=== PATIENT | female | born 1960 | race Two or more races ===

== ENCOUNTER 2022-09-29 08:00 | Inpatient (IN) | payer MEDICAID, OTHER ==
[~2022-09-29] VITALS: Ht 162.6 cm; Wt 64.3 kg
[2022-09-29] VITALS (11 sets, daily range): BP systolic 90–118; BP diastolic 46–61
[2022-09-29] MEDS ORDERED: LACTATED RINGER'S 2,000 ML IV ONE (08:45)
[2022-09-29] MEDS ORDERED: VANCOMYCIN 1GM/250ML 250 ML IV ONE (08:45)
[2022-09-29] MEDS ORDERED: CEFEPIME 1GM/ 50ML 50 ML IV ONE (08:45)
[2022-09-29] MEDS ORDERED: ACETAMINOPHEN 325 MG TAB PO ONE ×2 (08:45→17:30)
[2022-09-29] MEDS ORDERED: IOHEXOL 300 MG/ML 100ML BOTTLE IJ ONE ×2 (08:58→17:22)
[2022-09-29 09:27] LABS: Basophils # (auto) 0 10 ^3/uL (0-0.2); Basophils % (auto) 0.1 % (0.0-2.0); Eosinophils # (auto) 0 10 ^3/uL (0-0.8); Eosinophils % (auto) 0.1 % (0.0-7.0); Hematocrit 29.1 % (36.0-46.0); Hemoglobin 9.6 g/dL (12.2-16.2); Lymphocytes # (auto) 0.9 10 ^3/uL (0.4-5.4); Mean Corpuscular Hemoglobin 24.8 pg (28.0-32.0); Mean Corpuscular Hgb Conc. 32.9 g/dL (32.0-36.0); Mean Corpuscular Volume 75.4 fL (80.0-100.0); Monocytes # (auto) 1.1 10 ^3/uL (0-1.3); Monocytes % (auto) 8.4 % (0.0-12.0); Neutrophils # (auto) 11.5 10 ^3/uL (1.6-8.6); Neutrophils % (auto) 84.4 % (37.0-80.0); Nucleated Red Blood Cells % 0.1 %; Red Blood Cells 3.86 10^6/uL (4.0-5.20); Red Cell Distribution Width 14.1 % (11.8-14.3); White Blood Cell 13.6 10^3/uL (4.4-10.8)
[2022-09-29 09:38] LABS: INR 1.18 (0.9-1.15); Partial Thromboplastin Time 28.2 sec (24.6-33.4)
[2022-09-29 10:54] LABS: Albumin 1.9 g/dL (3.4-5.0); Calcium 8.3 mg/dL (8.5-10.1); Magnesium 1.9 mg/dL (1.6-2.6); Potassium 3.4 mmol/L (3.5-5.1)
[2022-09-29 10:57] LABS: Bilirubin, Total 0.6 mg/dL (0.2-1.0); Total Protein 7.1 g/dL (6.4-8.2)
[2022-09-29] MEDS ORDERED: PANTOPRAZOLE 40 MG/10 ML VIAL INJ IV ONE (11:30)
[2022-09-29] MEDS ORDERED: PANTOPRAZOLE 40mg/50ML NS AE 50 ML IV ONE (11:30)
[2022-09-29 13:59] LABS: Hemoglobin 8.8 g/dL (12.2-16.2)
[2022-09-29 14:03] LABS: Hematocrit 26.7 % (36.0-46.0)
[2022-09-29] MEDS ORDERED: SODIUM CHLORIDE 0.9% 1,000 ML IV ONE (15:15)
[2022-09-29] MEDS ORDERED: NOREPINEPHRINE 8 MG/250ML KIT 250 ML IV SCH (15:15)
[2022-09-29] MEDS ORDERED: MORPHINE SULFATE INJ 2 MG/ml SYRG IV ONE (15:15)
[2022-09-29] MEDS ORDERED: metroNIDAZOLE 500MG/100ML 100 ML IV ONE ×2 (16:00→18:00)
[2022-09-29 17:20] LABS: Urine Bacteria NONE SEEN /hpf (None Seen); Urine Blood 3+ /uL (Negative); Urine Specific Gravity 1.034 (1.001-1.035); Urine WBC 1039 /hpf (0 - 5); Urine WBC Clumps PRESENT /hpf (None Seen)
[2022-09-29] MEDS ORDERED: PIPERACILLIN-TAZOB 3.375GM 100 ML IV SCH (18:00)
[2022-09-29] MEDS ORDERED: NITROGLYCERIN 0.4 MG SL TAB SL PRN (18:00)
[2022-09-29] MEDS ORDERED: VANCOMYCIN PER PHARMACY 0 MG IV SCH (18:00)
[2022-09-29] MEDS: ALBUMIN 25% 50 ML IV SCH (18:22)
[2022-09-29] MEDS: SODIUM CHLORIDE 0.9% 1,000 ML IV SCH (18:22)
[2022-09-29] MEDS: PIPERACILLIN-TAZOB 3.375GM 100 ML IV SCH (18:30)
[2022-09-29 18:43] LABS: Hemoglobin 8.3 g/dL (12.2-16.2)
[2022-09-29 18:47] LABS: Hematocrit 25.5 % (36.0-46.0)
[2022-09-29 18:58] LABS: INR 1.18 (0.9-1.15); Partial Thromboplastin Time 29.6 sec (24.6-33.4)
[2022-09-29 19:06] LABS: % Iron Saturation 7.3 % (15-50)
[2022-09-29 19:08] LABS: Cholesterol 53 mg/dL (< 200); HDL Cholesterol 15 mg/dL (40-59); LDL Cholesterol 36 mg/dL (< 100); Triglycerides 77 mg/dL (< 150)
[2022-09-29 19:18] LABS: Folate (Folic Acid) 11.53 ng/mL (5.38-24)
[2022-09-29] MEDS: VANCOMYCIN 1GM/250ML 250 ML IV SCH (20:25)
[2022-09-29] MEDS: PANTOPRAZOLE 40 MG/10 ML VIAL INJ IV SCH (21:58)
[2022-09-29] MEDS: MORPHINE SULFATE INJ 2 MG/ml SYRG IV PRN (21:58)
[2022-09-30] VITALS (95 sets, daily range): BP systolic 83–121; BP diastolic 35–64
[2022-09-30 00:56] LABS: Hematocrit 26.6 % (36.0-46.0); Hemoglobin 8.7 g/dL (12.2-16.2)
[2022-09-30] MEDS: metroNIDAZOLE 500MG/100ML 100 ML IV SCH ×3 (01:39→17:24)
[2022-09-30] MEDS: ALBUMIN 25% 50 ML IV SCH ×2 (01:40→10:46)
[2022-09-30] MEDS: PIPERACILLIN-TAZOB 3.375GM 100 ML IV SCH ×2 (02:39→10:30)
[2022-09-30 04:43] LABS: Basophils # (auto) 0 10 ^3/uL (0-0.2); Hematocrit 27.6 % (36.0-46.0); Hemoglobin 8.9 g/dL (12.2-16.2); White Blood Cell 16.4 10^3/uL (4.4-10.8)
[2022-09-30 04:47] LABS: Basophils % (auto) 0.2 % (0.0-2.0); Eosinophils # (auto) 0 10 ^3/uL (0-0.8); Eosinophils % (auto) 0.1 % (0.0-7.0); Lymphocytes # (auto) 1.1 10 ^3/uL (0.4-5.4); Lymphocytes % (auto) 6.6 % (10.0-50.0); Mean Corpuscular Hgb Conc. 32.4 g/dL (32.0-36.0); Mean Corpuscular Volume 77.2 fL (80.0-100.0); Monocytes # (auto) 1.1 10 ^3/uL (0-1.3); Monocytes % (auto) 6.9 % (0.0-12.0); Neutrophils # (auto) 14.2 10 ^3/uL (1.6-8.6); Neutrophils % (auto) 86.2 % (37.0-80.0); Red Blood Cells 3.57 10^6/uL (4.0-5.20); Red Cell Distribution Width 13.9 % (11.8-14.3)
[2022-09-30 04:48] LABS: Albumin 1.9 g/dL (3.4-5.0); BUN/Creatinine Ratio 13.3 (10.0-20.0)
[2022-09-30 04:50] LABS: Bilirubin, Total 0.6 mg/dL (0.2-1.0); Total Protein 6.6 g/dL (6.4-8.2)
[2022-09-30] MEDS: SODIUM CHLORIDE 0.9% 1,000 ML IV SCH ×3 (05:13→17:24)
[2022-09-30] MEDS: MORPHINE SULFATE INJ 2 MG/ml SYRG IV PRN ×2 (06:34→15:10)
[2022-09-30] MEDS: VANCOMYCIN 1GM/250ML 250 ML IV SCH ×2 (09:16→23:12)
[2022-09-30] MEDS: PANTOPRAZOLE 40 MG/10 ML VIAL INJ IV SCH ×2 (10:45→22:07)
[2022-09-30 12:08] LABS: Hemoglobin 8.5 g/dL (12.2-16.2)
[2022-09-30 12:11] LABS: Hematocrit 26.1 % (36.0-46.0)
[2022-09-30] MEDS ORDERED: POTASSIUM CHLORIDE 60 MEQ, LIDOCAINE 1% (LOCAL ANESTH.) 6 ML in SODIUM CHL 0.9% 500 ML IV ONE (12:45)
[2022-09-30] MEDS: NOREPINEPHRINE 8 MG/250ML KIT 250 ML IV SCH (14:00)
[2022-09-30 18:31] LABS: Hemoglobin 9.2 g/dL (12.2-16.2)
[2022-09-30 18:33] LABS: Hematocrit 28.7 % (36.0-46.0)
[2022-09-30] MEDS ORDERED: LACTATED RINGER'S 1,000 ML IV ONE (20:00)
[2022-10-01] VITALS (96 sets, daily range): BP systolic 84–163; BP diastolic 37–74
[2022-10-01] MEDS: MORPHINE SULFATE INJ 2 MG/ml SYRG IV PRN ×3 (01:03→21:06)
[2022-10-01] MEDS: SODIUM CHLORIDE 0.9% 1,000 ML IV SCH ×3 (02:07→18:16)
[2022-10-01] MEDS: metroNIDAZOLE 500MG/100ML 100 ML IV SCH ×3 (02:08→18:16)
[2022-10-01] MEDS: NOREPINEPHRINE 8 MG/250ML KIT 250 ML IV SCH (03:52)
[2022-10-01 04:09] LABS: Basophils # (auto) 0 10 ^3/uL (0-0.2); Eosinophils # (auto) 0 10 ^3/uL (0-0.8); Hemoglobin 8.2 g/dL (12.2-16.2); Monocytes # (auto) 0.5 10 ^3/uL (0-1.3); Neutrophils # (auto) 9.2 10 ^3/uL (1.6-8.6); Red Blood Cells 3.23 10^6/uL (4.0-5.20)
[2022-10-01 04:12] LABS: Basophils % (auto) 0.2 % (0.0-2.0); Eosinophils % (auto) 0.1 % (0.0-7.0); Hematocrit 24.8 % (36.0-46.0); Lymphocytes % (auto) 9.2 % (10.0-50.0); Mean Corpuscular Hemoglobin 25.2 pg (28.0-32.0); Mean Corpuscular Hgb Conc. 32.8 g/dL (32.0-36.0); Mean Corpuscular Volume 76.8 fL (80.0-100.0); Neutrophils % (auto) 85.5 % (37.0-80.0); Red Cell Distribution Width 13.7 % (11.8-14.3); White Blood Cell 10.7 10^3/uL (4.4-10.8)
[2022-10-01 05:04] LABS: BUN/Creatinine Ratio 19.2 (10.0-20.0); Calcium 8.2 mg/dL (8.5-10.1); Potassium 3.1 mmol/L (3.5-5.1)
[2022-10-01] MEDS ORDERED: POTASSIUM CHLORIDE 60 MEQ, LIDOCAINE 1% (LOCAL ANESTH.) 6 ML in SODIUM CHL 0.9% 500 ML IV ONE (09:45)
[2022-10-01] MEDS: PANTOPRAZOLE 40 MG/10 ML VIAL INJ IV SCH ×2 (10:22→22:24)
[2022-10-01] MEDS: VANCOMYCIN 1GM/250ML 250 ML IV SCH ×2 (12:47→21:05)
[2022-10-01 14:16] LABS: INR 1.29 (0.9-1.15); Partial Thromboplastin Time 37.1 sec (24.6-33.4)
[2022-10-01] MEDS ORDERED: LIDOCAINE 1% (LOCAL ANESTH.) PF 5ml SDV ID ONE (18:00)
[2022-10-01] MEDS: SODIUM CHLOR 0.9% PF (SALINE LOCK) 10ML VIAL/SYR IV SCH (22:24)
[2022-10-01] MEDS: CEFEPIME 1GM/ 50ML 50 ML IV SCH (22:24)
[2022-10-02] VITALS (87 sets, daily range): BP systolic 85–128; BP diastolic 41–56
[2022-10-02] MEDS: NOREPINEPHRINE 8 MG/250ML KIT 250 ML IV SCH (00:26)
[2022-10-02] MEDS: SODIUM CHLORIDE 0.9% 1,000 ML IV SCH ×2 (02:00→05:21)
[2022-10-02] MEDS: metroNIDAZOLE 500MG/100ML 100 ML IV SCH ×2 (03:14→10:50)
[2022-10-02] MEDS: MORPHINE SULFATE INJ 2 MG/ml SYRG IV PRN ×3 (04:17→14:52)
[2022-10-02 04:50] LABS: Basophils # (auto) 0 10 ^3/uL (0-0.2); Eosinophils # (auto) 0 10 ^3/uL (0-0.8); Eosinophils % (auto) 0.3 % (0.0-7.0); Hemoglobin 7.9 g/dL (12.2-16.2); Lymphocytes # (auto) 0.8 10 ^3/uL (0.4-5.4); Mean Corpuscular Hemoglobin 24.9 pg (28.0-32.0); Mean Corpuscular Hgb Conc. 32.4 g/dL (32.0-36.0); Mean Corpuscular Volume 76.8 fL (80.0-100.0); Nucleated Red Blood Cells % 0.1 %; White Blood Cell 9.1 10^3/uL (4.4-10.8)
[2022-10-02 04:59] LABS: Basophils % (auto) 0.4 % (0.0-2.0); Hematocrit 24.3 % (36.0-46.0); Lymphocytes % (auto) 8.4 % (10.0-50.0); Monocytes # (auto) 0.6 10 ^3/uL (0-1.3); Monocytes % (auto) 6.6 % (0.0-12.0); Neutrophils # (auto) 7.7 10 ^3/uL (1.6-8.6); Neutrophils % (auto) 84.3 % (37.0-80.0); Red Blood Cells 3.17 10^6/uL (4.0-5.20); Red Cell Distribution Width 14.3 % (11.8-14.3)
[2022-10-02] MEDS: VANCOMYCIN 1GM/250ML 250 ML IV SCH ×2 (05:20→13:21)
[2022-10-02 05:23] LABS: BUN/Creatinine Ratio 21.1 (10.0-20.0); Calcium 7.2 mg/dL (8.5-10.1)
[2022-10-02 05:31] LABS: Potassium 2.9 mmol/L (3.5-5.1)
[2022-10-02] MEDS: CEFEPIME 1GM/ 50ML 50 ML IV SCH ×3 (06:19→22:30)
[2022-10-02] MEDS: PANTOPRAZOLE 40 MG/10 ML VIAL INJ IV SCH ×2 (09:59→22:30)
[2022-10-02] MEDS: SODIUM CHLOR 0.9% PF (SALINE LOCK) 10ML VIAL/SYR IV SCH ×2 (10:00→22:30)
[2022-10-02] MEDS ORDERED: POTASSIUM CHLORIDE 60 MEQ, LIDOCAINE 1% (LOCAL ANESTH.) 6 ML in SODIUM CHL 0.9% 500 ML IV ONE (11:30)
[2022-10-02 13:36] LABS: Urine Bacteria FEW /hpf (None Seen); Urine Blood 3+ /uL (Negative); Urine Mucus FEW (None Seen); Urine Specific Gravity 1.017 (1.001-1.035); Urine WBC 2426 /hpf (0 - 5); Urine WBC Clumps PRESENT /hpf (None Seen)
[2022-10-03] VITALS (93 sets, daily range): BP systolic 82–121; BP diastolic 30–60
[2022-10-03 04:39] LABS: Basophils # (auto) 0 10 ^3/uL (0-0.2); Eosinophils # (auto) 0 10 ^3/uL (0-0.8); Hemoglobin 8.4 g/dL (12.2-16.2)
[2022-10-03 04:41] LABS: Basophils % (auto) 0.2 % (0.0-2.0); Eosinophils % (auto) 0.6 % (0.0-7.0); Hematocrit 25.6 % (36.0-46.0); Lymphocytes # (auto) 0.9 10 ^3/uL (0.4-5.4); Lymphocytes % (auto) 13.6 % (10.0-50.0); Mean Corpuscular Hemoglobin 25.2 pg (28.0-32.0); Mean Corpuscular Hgb Conc. 32.9 g/dL (32.0-36.0); Mean Corpuscular Volume 76.7 fL (80.0-100.0); Monocytes # (auto) 0.4 10 ^3/uL (0-1.3); Monocytes % (auto) 6.8 % (0.0-12.0); Neutrophils # (auto) 5.2 10 ^3/uL (1.6-8.6); Neutrophils % (auto) 78.8 % (37.0-80.0); Red Blood Cells 3.34 10^6/uL (4.0-5.20); Red Cell Distribution Width 14.4 % (11.8-14.3); White Blood Cell 6.5 10^3/uL (4.4-10.8)
[2022-10-03 05:00] LABS: Calcium 8.1 mg/dL (8.5-10.1); Potassium 3.4 mmol/L (3.5-5.1)
[2022-10-03] MEDS: NOREPINEPHRINE 8 MG/250ML KIT 250 ML IV SCH (05:44)
[2022-10-03] MEDS: MORPHINE SULFATE INJ 2 MG/ml SYRG IV PRN ×4 (05:45→22:43)
[2022-10-03] MEDS: CEFEPIME 1GM/ 50ML 50 ML IV SCH ×3 (06:05→22:42)
[2022-10-03] MEDS: PANTOPRAZOLE 40 MG/10 ML VIAL INJ IV SCH ×2 (10:04→22:42)
[2022-10-03] MEDS: SODIUM CHLOR 0.9% PF (SALINE LOCK) 10ML VIAL/SYR IV SCH ×2 (10:04→22:43)
[2022-10-03] MEDS ORDERED: TPN PER PHARMACY 0 ML IV SCH (13:30)
[2022-10-03] MEDS ORDERED: ALBUMIN 25% 100 ML IV ONE (13:45)
[2022-10-03] MEDS: D5W/SOD CHL 0.45% 1,000 ML IV SCH ×2 (14:30→23:51)
[2022-10-03 15:49] LABS: Magnesium 1.8 mg/dL (1.6-2.6)
[2022-10-03 15:51] LABS: Phosphorus 2.7 mg/dL (2.5-4.90)
[2022-10-03] MEDS ORDERED: POTASSIUM CHL 20MEQ/100ML 100 ML IV ONE (16:15)
[2022-10-03] MEDS: AMINO ACID INFUSION IN D10W 1,000 ML IV NR (20:13)
[2022-10-04] VITALS (94 sets, daily range): BP systolic 81–133; BP diastolic 35–63
[2022-10-04] MEDS ORDERED: DEXTROSE (50%) 50ML SYRG IV SCH
[2022-10-04] MEDS: ACCU-CHEK COMFORT CURVE STRIP VI SCH ×4 (01:05→18:16)
[2022-10-04 04:32] LABS: Basophils # (auto) 0 10 ^3/uL (0-0.2); Basophils % (auto) 0.1 % (0.0-2.0); Eosinophils # (auto) 0 10 ^3/uL (0-0.8); Eosinophils % (auto) 0.7 % (0.0-7.0); Lymphocytes # (auto) 0.8 10 ^3/uL (0.4-5.4); Monocytes # (auto) 0.4 10 ^3/uL (0-1.3); Neutrophils # (auto) 4.9 10 ^3/uL (1.6-8.6); White Blood Cell 6.1 10^3/uL (4.4-10.8)
[2022-10-04 04:35] LABS: Hematocrit 23.2 % (36.0-46.0); Hemoglobin 7.8 g/dL (12.2-16.2); Mean Corpuscular Hemoglobin 25.3 pg (28.0-32.0); Mean Corpuscular Hgb Conc. 33.5 g/dL (32.0-36.0); Mean Corpuscular Volume 75.3 fL (80.0-100.0); Monocytes % (auto) 5.7 % (0.0-12.0); Neutrophils % (auto) 80.5 % (37.0-80.0); Red Blood Cells 3.08 10^6/uL (4.0-5.20); Red Cell Distribution Width 14.3 % (11.8-14.3)
[2022-10-04 04:43] LABS: Albumin 1.7 g/dL (3.4-5.0); Anion Gap 4 (5-15); Blood Urea Nitrogen 3 mg/dL (7-18); Carbon Dioxide 29 mmol/L (21-32); Chloride 103 mmol/L (98-107); Glucose 148 mg/dL (74-106); Magnesium 1.7 mg/dL (1.6-2.6); Sodium 136 mmol/L (136-145)
[2022-10-04 04:45] LABS: Alanine Aminotransferase < 6 U/L (13-56); Aspartate Aminotransferase 9 U/L (15-37); BUN/Creatinine Ratio 11.1 (10.0-20.0); GFR African American 328 mL/min; GFR Non-African American 271 mL/min
[2022-10-04 04:47] LABS: Alkaline Phosphatase 45 U/L (45-117); Bilirubin, Total 0.3 mg/dL (0.2-1.0); Phosphorus 2.1 mg/dL (2.5-4.90); Total Protein 5.5 g/dL (6.4-8.2)
[2022-10-04 05:26] LABS: Potassium 2.9 mmol/L (3.5-5.1)
[2022-10-04] MEDS: InsuLIN REG 1unit/0.01ml Soln (100units/ml) SC SCH ×4 (05:56→18:00)
[2022-10-04] MEDS: CEFEPIME 1GM/ 50ML 50 ML IV SCH ×3 (05:57→22:00)
[2022-10-04] MEDS: MORPHINE SULFATE INJ 2 MG/ml SYRG IV PRN ×3 (06:17→16:15)
[2022-10-04] MEDS: D5W/SOD CHL 0.45% 1,000 ML IV SCH ×3 (07:43→20:22)
[2022-10-04] MEDS: NOREPINEPHRINE 8 MG/250ML KIT 250 ML IV SCH (08:34)
[2022-10-04] MEDS: POTASSIUM CHL 20MEQ/100ML 100 ML IV SCH ×3 (08:34→12:17)
[2022-10-04] MEDS ORDERED: ALBUMIN 25% 100 ML IV ONE (10:00)
[2022-10-04] MEDS: SODIUM CHLOR 0.9% PF (SALINE LOCK) 10ML VIAL/SYR IV SCH ×2 (10:11→22:00)
[2022-10-04] MEDS: PANTOPRAZOLE 40 MG/10 ML VIAL INJ IV SCH ×2 (10:11→22:00)
[2022-10-04] MEDS ORDERED: SODIUM PHOSPHATES 20 MEQ in SODIUM CHL 0.9% 100 ML IV ONE (10:15)
[2022-10-04] MEDS ORDERED: D5W/SOD CHL 0.45% 1,000 ML IV SCH (10:30)
[2022-10-04] MEDS: AMINO ACID INFUSION IN D10W 1,000 ML IV NR (19:49)
[2022-10-04] MEDS ORDERED: TPN PER PHARMACY IV NR ×9 (20:00)
[2022-10-05] VITALS (82 sets, daily range): BP systolic 81–124; BP diastolic 36–71
[2022-10-05 04:46] LABS: Basophils # (auto) 0 10 ^3/uL (0-0.2); Eosinophils # (auto) 0 10 ^3/uL (0-0.8); Eosinophils % (auto) 0.6 % (0.0-7.0); Lymphocytes # (auto) 0.8 10 ^3/uL (0.4-5.4); Mean Corpuscular Hemoglobin 24.6 pg (28.0-32.0); Monocytes # (auto) 0.4 10 ^3/uL (0-1.3); Monocytes % (auto) 7.7 % (0.0-12.0); Neutrophils # (auto) 4.1 10 ^3/uL (1.6-8.6); Nucleated Red Blood Cells % 0.1 %; White Blood Cell 5.3 10^3/uL (4.4-10.8)
[2022-10-05 04:47] LABS: Basophils % (auto) 0.3 % (0.0-2.0); Hematocrit 22.9 % (36.0-46.0); Hemoglobin 7.4 g/dL (12.2-16.2); Lymphocytes % (auto) 14.2 % (10.0-50.0); Mean Corpuscular Hgb Conc. 32.5 g/dL (32.0-36.0); Mean Corpuscular Volume 75.9 fL (80.0-100.0); Neutrophils % (auto) 77.2 % (37.0-80.0); Red Blood Cells 3.02 10^6/uL (4.0-5.20); Red Cell Distribution Width 14.3 % (11.8-14.3)
[2022-10-05 05:13] LABS: Albumin 1.9 g/dL (3.4-5.0); BUN/Creatinine Ratio 11.4 (10.0-20.0); Magnesium 1.8 mg/dL (1.6-2.6); Potassium 3.4 mmol/L (3.5-5.1)
[2022-10-05 05:15] LABS: Bilirubin, Total 0.2 mg/dL (0.2-1.0); Phosphorus 2.9 mg/dL (2.5-4.90); Total Protein 5.7 g/dL (6.4-8.2)
[2022-10-05] MEDS: ACCU-CHEK COMFORT CURVE STRIP VI SCH ×5 (05:45→23:55)
[2022-10-05] MEDS: CEFEPIME 1GM/ 50ML 50 ML IV SCH ×3 (05:45→22:23)
[2022-10-05] MEDS: InsuLIN REG 1unit/0.01ml Soln (100units/ml) SC SCH ×5 (05:47→23:55)
[2022-10-05] MEDS: MORPHINE SULFATE 4 MG/ML SYR/VIAL IV PRN ×2 (08:30→16:53)
[2022-10-05] MEDS: PANTOPRAZOLE 40 MG/10 ML VIAL INJ IV SCH ×2 (10:17→22:23)
[2022-10-05] MEDS: POTASSIUM CHL 20MEQ/100ML 100 ML IV SCH ×2 (10:18→13:57)
[2022-10-05] MEDS: SODIUM CHLOR 0.9% PF (SALINE LOCK) 10ML VIAL/SYR IV SCH ×2 (10:18→22:23)
[2022-10-05] MEDS: D5W/SOD CHL 0.45% 1,000 ML IV SCH ×2 (11:16→18:14)
[2022-10-05] MEDS: NOREPINEPHRINE 8 MG/250ML KIT 250 ML IV SCH (14:00)
[2022-10-05] MEDS: MORPHINE SULFATE INJ 2 MG/ml SYRG IV PRN (19:52)
[2022-10-05] MEDS ORDERED: TPN PER PHARMACY IV NR ×9 (20:00)
[2022-10-06] VITALS (90 sets, daily range): BP systolic 72–166; BP diastolic 29–124
[2022-10-06] MEDS: MORPHINE SULFATE INJ 2 MG/ml SYRG IV PRN ×2 (00:03→17:48)
[2022-10-06 04:10] LABS: Basophils # (auto) 0 10 ^3/uL (0-0.2); Eosinophils # (auto) 0.1 10 ^3/uL (0-0.8); Lymphocytes # (auto) 1.2 10 ^3/uL (0.4-5.4); Neutrophils # (auto) 3.7 10 ^3/uL (1.6-8.6)
[2022-10-06 04:13] LABS: Basophils % (auto) 0.5 % (0.0-2.0); Eosinophils % (auto) 2.3 % (0.0-7.0); Hematocrit 26.8 % (36.0-46.0); Hemoglobin 8.9 g/dL (12.2-16.2); Lymphocytes % (auto) 22.1 % (10.0-50.0); Mean Corpuscular Hemoglobin 25.4 pg (28.0-32.0); Mean Corpuscular Hgb Conc. 33.2 g/dL (32.0-36.0); Mean Corpuscular Volume 76.4 fL (80.0-100.0); Monocytes # (auto) 0.4 10 ^3/uL (0-1.3); Monocytes % (auto) 6.8 % (0.0-12.0); Neutrophils % (auto) 68.3 % (37.0-80.0); Red Blood Cells 3.51 10^6/uL (4.0-5.20); Red Cell Distribution Width 14.3 % (11.8-14.3); White Blood Cell 5.4 10^3/uL (4.4-10.8)
[2022-10-06 04:17] LABS: Albumin 2.2 g/dL (3.4-5.0); Calcium 8.8 mg/dL (8.5-10.1); Magnesium 2.3 mg/dL (1.6-2.6); Potassium 4.2 mmol/L (3.5-5.1)
[2022-10-06 04:21] LABS: BUN/Creatinine Ratio 20.5 (10.0-20.0); Bilirubin, Total 0.3 mg/dL (0.2-1.0); Phosphorus 3.3 mg/dL (2.5-4.90); Total Protein 6.5 g/dL (6.4-8.2)
[2022-10-06] MEDS: D5W/SOD CHL 0.45% 1,000 ML IV SCH ×3 (05:13→17:30)
[2022-10-06] MEDS: ACCU-CHEK COMFORT CURVE STRIP VI SCH ×3 (05:43→17:57)
[2022-10-06] MEDS: InsuLIN REG 1unit/0.01ml Soln (100units/ml) SC SCH ×3 (05:44→17:57)
[2022-10-06] MEDS: CEFEPIME 1GM/ 50ML 50 ML IV SCH ×3 (06:30→21:51)
[2022-10-06] MEDS: PANTOPRAZOLE 40 MG/10 ML VIAL INJ IV SCH ×2 (09:39→21:51)
[2022-10-06] MEDS: SODIUM CHLOR 0.9% PF (SALINE LOCK) 10ML VIAL/SYR IV SCH ×2 (09:39→21:51)
[2022-10-06] MEDS: MORPHINE SULFATE 4 MG/ML SYR/VIAL IV PRN ×3 (09:51→21:51)
[2022-10-06] MEDS: MIDODRINE HCL 10 MG TAB PO SCH ×2 (12:00→17:20)
[2022-10-06] MEDS: NOREPINEPHRINE 8 MG/250ML KIT 250 ML IV SCH (12:06)
[2022-10-06] MEDS: TPN PER PHARMACY IV NR ×10 (20:00)
[2022-10-07] VITALS (85 sets, daily range): BP systolic 75–122; BP diastolic 27–67
[2022-10-07] MEDS: ACCU-CHEK COMFORT CURVE STRIP VI SCH ×4 (00:13→17:53)
[2022-10-07] MEDS: InsuLIN REG 1unit/0.01ml Soln (100units/ml) SC SCH ×4 (00:13→17:53)
[2022-10-07] MEDS: MORPHINE SULFATE 4 MG/ML SYR/VIAL IV PRN ×2 (03:15→21:25)
[2022-10-07 04:16] LABS: Basophils # (auto) 0 10 ^3/uL (0-0.2); Eosinophils # (auto) 0.1 10 ^3/uL (0-0.8); Lymphocytes # (auto) 1.3 10 ^3/uL (0.4-5.4); Nucleated Red Blood Cells % 0.1 %; Red Cell Distribution Width 14.7 % (11.8-14.3)
[2022-10-07 04:19] LABS: Basophils % (auto) 0.3 % (0.0-2.0); Hematocrit 28.5 % (36.0-46.0); Hemoglobin 9.4 g/dL (12.2-16.2); Lymphocytes % (auto) 18.3 % (10.0-50.0); Mean Corpuscular Hemoglobin 24.8 pg (28.0-32.0); Mean Corpuscular Hgb Conc. 32.9 g/dL (32.0-36.0); Mean Corpuscular Volume 75.4 fL (80.0-100.0); Monocytes # (auto) 0.7 10 ^3/uL (0-1.3); Monocytes % (auto) 9.5 % (0.0-12.0); Neutrophils # (auto) 4.9 10 ^3/uL (1.6-8.6); Neutrophils % (auto) 69.9 % (37.0-80.0); Red Blood Cells 3.79 10^6/uL (4.0-5.20); White Blood Cell 6.9 10^3/uL (4.4-10.8)
[2022-10-07 04:32] LABS: Potassium 4.4 mmol/L (3.5-5.1)
[2022-10-07 04:38] LABS: Albumin 2.3 g/dL (3.4-5.0); BUN/Creatinine Ratio 26.7 (10.0-20.0); Bilirubin, Total 0.2 mg/dL (0.2-1.0); Magnesium 2.4 mg/dL (1.6-2.6); Phosphorus 3.5 mg/dL (2.5-4.90)
[2022-10-07] MEDS: CEFEPIME 1GM/ 50ML 50 ML IV SCH ×3 (05:21→21:07)
[2022-10-07] MEDS: MIDODRINE HCL 10 MG TAB PO SCH ×3 (05:21→17:29)
[2022-10-07] MEDS: MORPHINE SULFATE INJ 2 MG/ml SYRG IV PRN ×3 (05:36→17:30)
[2022-10-07] MEDS: PANTOPRAZOLE 40 MG/10 ML VIAL INJ IV SCH ×2 (09:33→21:07)
[2022-10-07] MEDS: SODIUM CHLOR 0.9% PF (SALINE LOCK) 10ML VIAL/SYR IV SCH ×2 (09:33→21:07)
[2022-10-07] MEDS ORDERED: ENOXAPARIN SOD 40 MG/0.4 ML SYRINGE SC ONE (11:00)
[2022-10-07] MEDS: D5W/SOD CHL 0.45% 1,000 ML IV SCH (16:23)
[2022-10-07] MEDS: TPN PER PHARMACY IV NR ×10 (19:57)
[2022-10-07] MEDS ORDERED: TPN PER PHARMACY IV NR ×10 (20:00)
[2022-10-07] MEDS: NOREPINEPHRINE 8 MG/250ML KIT 250 ML IV SCH (22:48)
[2022-10-08] VITALS (88 sets, daily range): BP systolic 82–126; BP diastolic 35–58
[2022-10-08] MEDS: D5W/SOD CHL 0.45% 1,000 ML IV SCH ×2 (01:49→13:11)
[2022-10-08] MEDS: MORPHINE SULFATE 4 MG/ML SYR/VIAL IV PRN ×6 (01:51→21:45)
[2022-10-08 04:33] LABS: Basophils # (auto) 0.1 10 ^3/uL (0-0.2); Basophils % (auto) 0.9 % (0.0-2.0); Eosinophils # (auto) 0.1 10 ^3/uL (0-0.8); Eosinophils % (auto) 1.9 % (0.0-7.0); Hematocrit 27.2 % (36.0-46.0); Hemoglobin 8.8 g/dL (12.2-16.2); Lymphocytes # (auto) 1.3 10 ^3/uL (0.4-5.4); Lymphocytes % (auto) 19.4 % (10.0-50.0); Mean Corpuscular Hemoglobin 24.9 pg (28.0-32.0); Mean Corpuscular Hgb Conc. 32.5 g/dL (32.0-36.0); Mean Corpuscular Volume 76.5 fL (80.0-100.0); Monocytes # (auto) 0.5 10 ^3/uL (0-1.3); Monocytes % (auto) 7.5 % (0.0-12.0); Neutrophils # (auto) 4.6 10 ^3/uL (1.6-8.6); Neutrophils % (auto) 70.3 % (37.0-80.0); Red Blood Cells 3.55 10^6/uL (4.0-5.20); Red Cell Distribution Width 15.4 % (11.8-14.3); White Blood Cell 6.6 10^3/uL (4.4-10.8)
[2022-10-08 04:58] LABS: Potassium 4.2 mmol/L (3.5-5.1)
[2022-10-08 05:06] LABS: Albumin 2.4 g/dL (3.4-5.0); BUN/Creatinine Ratio 35.4 (10.0-20.0); Bilirubin, Total 0.2 mg/dL (0.2-1.0); Calcium 8.9 mg/dL (8.5-10.1); Magnesium 2.1 mg/dL (1.6-2.6); Phosphorus 3.6 mg/dL (2.5-4.90); Total Protein 7.2 g/dL (6.4-8.2)
[2022-10-08] MEDS: CEFEPIME 1GM/ 50ML 50 ML IV SCH ×3 (05:52→21:50)
[2022-10-08] MEDS: MIDODRINE HCL 10 MG TAB PO SCH ×2 (05:52→12:00)
[2022-10-08] MEDS: ACCU-CHEK COMFORT CURVE STRIP VI SCH ×3 (05:53→12:00)
[2022-10-08] MEDS: InsuLIN REG 1unit/0.01ml Soln (100units/ml) SC SCH ×3 (05:58→12:00)
[2022-10-08] MEDS ORDERED: IOHEXOL 300 MG/ML 100ML BOTTLE IJ ONE (09:40)
[2022-10-08] MEDS: ENOXAPARIN SOD 40 MG/0.4 ML SYRINGE SC SCH (10:00)
[2022-10-08] MEDS: SODIUM CHLOR 0.9% PF (SALINE LOCK) 10ML VIAL/SYR IV SCH ×2 (10:10→21:51)
[2022-10-08] MEDS: PANTOPRAZOLE 40 MG/10 ML VIAL INJ IV SCH ×2 (10:10→21:50)
[2022-10-08] MEDS: NOREPINEPHRINE 8 MG/250ML KIT 250 ML IV SCH (14:00)
[2022-10-08] MEDS ORDERED: TPN PER PHARMACY IV NR ×10 (20:00)
[2022-10-09] VITALS (90 sets, daily range): BP systolic 42–140; BP diastolic 27–81
[2022-10-09] MEDS: D5W/SOD CHL 0.45% 1,000 ML IV SCH ×2 (00:03→15:59)
[2022-10-09] MEDS: NOREPINEPHRINE 8 MG/250ML KIT 250 ML IV SCH (00:39)
[2022-10-09] MEDS: MORPHINE SULFATE 4 MG/ML SYR/VIAL IV PRN (01:34)
[2022-10-09 03:36] LABS: Basophils # (auto) 0 10 ^3/uL (0-0.2); Basophils % (auto) 0.5 % (0.0-2.0); Eosinophils # (auto) 0.1 10 ^3/uL (0-0.8); Hemoglobin 8.6 g/dL (12.2-16.2); Mean Corpuscular Hgb Conc. 33.4 g/dL (32.0-36.0); Neutrophils # (auto) 5.5 10 ^3/uL (1.6-8.6)
[2022-10-09 03:38] LABS: Eosinophils % (auto) 1.2 % (0.0-7.0); Hematocrit 25.8 % (36.0-46.0); Lymphocytes # (auto) 1.1 10 ^3/uL (0.4-5.4); Lymphocytes % (auto) 14.9 % (10.0-50.0); Mean Corpuscular Hemoglobin 25.4 pg (28.0-32.0); Mean Corpuscular Volume 76.2 fL (80.0-100.0); Monocytes # (auto) 0.7 10 ^3/uL (0-1.3); Neutrophils % (auto) 74.4 % (37.0-80.0); Nucleated Red Blood Cells % 0.1 %; Red Blood Cells 3.39 10^6/uL (4.0-5.20); Red Cell Distribution Width 14.7 % (11.8-14.3); White Blood Cell 7.4 10^3/uL (4.4-10.8)
[2022-10-09 04:03] LABS: Albumin 2.4 g/dL (3.4-5.0); BUN/Creatinine Ratio 40.9 (10.0-20.0); Calcium 8.9 mg/dL (8.5-10.1); Magnesium 2.2 mg/dL (1.6-2.6)
[2022-10-09 04:06] LABS: Bilirubin, Total 0.2 mg/dL (0.2-1.0); Phosphorus 3.4 mg/dL (2.5-4.90); Total Protein 7.5 g/dL (6.4-8.2)
[2022-10-09] MEDS: MIDODRINE HCL 10 MG TAB PO SCH ×3 (05:49→17:58)
[2022-10-09] MEDS: CEFEPIME 1GM/ 50ML 50 ML IV SCH (06:00)
[2022-10-09] MEDS: ACCU-CHEK COMFORT CURVE STRIP VI SCH ×4 (06:00→18:56)
[2022-10-09] MEDS: InsuLIN REG 1unit/0.01ml Soln (100units/ml) SC SCH ×4 (06:00→18:00)
[2022-10-09] MEDS ORDERED: fentaNYL CITRATE 100 MCG/2 ML VL ONE (08:54)
[2022-10-09] MEDS ORDERED: HYDROmorphone HCL 2 MG/ML VL/or syr ONE ×2 (08:54→11:40)
[2022-10-09] MEDS ORDERED: MIDAZOLAM HCL 2MG/2ML 2ml VIAL (1mg/ml) ONE (08:54)
[2022-10-09] MEDS ORDERED: DexAMETHasone SOD PHOS 10MG/1ML VIAL INJ ONE (08:55)
[2022-10-09] MEDS ORDERED: LIDOCAINE 2% (LOCAL ANESTH.) PF 5ml SDV ONE (08:55)
[2022-10-09] MEDS ORDERED: SODIUM CHLORIDE LOCK 10 ML ONE (08:55)
[2022-10-09] MEDS ORDERED: ROCURONIUM 10MG/ML 10ML VIAL IV ONE (08:55)
[2022-10-09] MEDS ORDERED: ETOMIDATE (2MG/ML) 20ML VIAL IV ONE (08:55)
[2022-10-09 09:14] LABS: INR 1.03 (0.9-1.15); Partial Thromboplastin Time 27.5 sec (24.6-33.4)
[2022-10-09] MEDS ORDERED: BUPIVACAINE 0.25% INJ 50ML VIAL ONE (09:43)
[2022-10-09] MEDS ORDERED: LIDOCAINE W/ EPINEPHRINE 1% 20ML VIAL ONE ×2 (09:43→11:37)
[2022-10-09] MEDS: ENOXAPARIN SOD 40 MG/0.4 ML SYRINGE SC SCH (10:00)
[2022-10-09] MEDS ORDERED: MIDAZOLAM DRIP 50 mg/50mL 50 ML IV ONE (12:11)
[2022-10-09] MEDS ORDERED: fentaNYL Drip 2500mCg/250mlNS 250 ML IV ONE (12:11)
[2022-10-09] MEDS ORDERED: MIDAZOLAM DRIP 50 mg/50mL 50 ML IV SCH (12:15)
[2022-10-09] MEDS: fentaNYL Drip 2500mCg/250mlNS 250 ML IV SCH (12:40)
[2022-10-09] MEDS: MIDAZOLAM DRIP 50 mg/50mL 50 ML IV SCH ×2 (12:41→17:58)
[2022-10-09] MEDS: SODIUM CHLOR 0.9% PF (SALINE LOCK) 10ML VIAL/SYR IV SCH ×2 (12:49→22:04)
[2022-10-09] MEDS ORDERED: metroNIDAZOLE 500MG/100ML 100 ML IV ONE (13:30)
[2022-10-09] MEDS: PANTOPRAZOLE 40 MG/10 ML VIAL INJ IV SCH ×2 (14:26→22:04)
[2022-10-09] MEDS ORDERED: ACETAMINOPHEN 650 MG RECT SUPP PR PRN (20:00)
[2022-10-09] MEDS ORDERED: TPN PER PHARMACY IV NR ×9 (20:00)
[2022-10-09] MEDS ORDERED: SODIUM CHLORIDE 0.9% 1,000 ML IV ONE (20:00)
[2022-10-09] MEDS: metroNIDAZOLE 500MG/100ML 100 ML IV SCH (22:04)
[2022-10-10] VITALS (108 sets, daily range): BP systolic 61–165; BP diastolic 37–102
[2022-10-10] MEDS: ACCU-CHEK COMFORT CURVE STRIP VI SCH ×4 (00:32→17:43)
[2022-10-10] MEDS: InsuLIN REG 1unit/0.01ml Soln (100units/ml) SC SCH ×4 (00:36→17:43)
[2022-10-10] MEDS: fentaNYL Drip 2500mCg/250mlNS 250 ML IV SCH (03:21)
[2022-10-10 04:22] LABS: Basophils # (auto) 0 10 ^3/uL (0-0.2); Basophils % (auto) 0.1 % (0.0-2.0); Eosinophils # (auto) 0 10 ^3/uL (0-0.8); Lymphocytes # (auto) 0.6 10 ^3/uL (0.4-5.4); Monocytes # (auto) 0.5 10 ^3/uL (0-1.3); Neutrophils # (auto) 4.8 10 ^3/uL (1.6-8.6); Neutrophils % (auto) 81.7 % (37.0-80.0); Red Blood Cells 5.05 10^6/uL (4.0-5.20); Red Cell Distribution Width 15.5 % (11.8-14.3); White Blood Cell 5.9 10^3/uL (4.4-10.8)
[2022-10-10 04:24] LABS: Eosinophils % (auto) 0.2 % (0.0-7.0); Hematocrit 39.2 % (36.0-46.0); Hemoglobin 12.7 g/dL (12.2-16.2); Lymphocytes % (auto) 9.8 % (10.0-50.0); Mean Corpuscular Hemoglobin 25.2 pg (28.0-32.0); Mean Corpuscular Hgb Conc. 32.5 g/dL (32.0-36.0); Mean Corpuscular Volume 77.6 fL (80.0-100.0); Monocytes % (auto) 8.2 % (0.0-12.0)
[2022-10-10 04:37] LABS: Alanine Aminotransferase < 6 U/L (13-56); Albumin 1.7 g/dL (3.4-5.0); Anion Gap 4 (5-15); Aspartate Aminotransferase 13 U/L (15-37); Blood Urea Nitrogen 19 mg/dL (7-18); Calcium 7.9 mg/dL (8.5-10.1); Carbon Dioxide 22 mmol/L (21-32); Chloride 107 mmol/L (98-107); GFR African American 221 mL/min; GFR Non-African American 183 mL/min; Glucose 146 mg/dL (74-106); Magnesium 1.8 mg/dL (1.6-2.6); Sodium 133 mmol/L (136-145)
[2022-10-10 04:40] LABS: Alkaline Phosphatase 77 U/L (45-117); Bilirubin, Total 0.6 mg/dL (0.2-1.0); Phosphorus 2.8 mg/dL (2.5-4.90); Total Protein 5.7 g/dL (6.4-8.2)
[2022-10-10] MEDS: D5W/SOD CHL 0.45% 1,000 ML IV SCH ×2 (04:55→17:36)
[2022-10-10] MEDS: MIDODRINE HCL 10 MG TAB PO SCH ×3 (06:00→18:00)
[2022-10-10] MEDS: metroNIDAZOLE 500MG/100ML 100 ML IV SCH ×3 (06:18→21:57)
[2022-10-10] MEDS: HYDROmorphone HCL 2 MG/ML VL/or syr IV PRN ×3 (08:51→21:57)
[2022-10-10] MEDS: ENOXAPARIN SOD 40 MG/0.4 ML SYRINGE SC SCH (09:08)
[2022-10-10] MEDS: SODIUM CHLOR 0.9% PF (SALINE LOCK) 10ML VIAL/SYR IV SCH ×2 (10:08→21:57)
[2022-10-10] MEDS: PANTOPRAZOLE 40 MG/10 ML VIAL INJ IV SCH ×2 (10:11→21:56)
[2022-10-10] MEDS ORDERED: cefTRIAXone 1GM/50ML D5W 50 ML IV ONE (10:15)
[2022-10-10 10:30] LABS: Hematocrit 21.8 % (36.0-46.0)
[2022-10-10 10:47] LABS: Hemoglobin 6.9 g/dL (12.2-16.2)
[2022-10-10] MEDS: NOREPINEPHRINE 8 MG/250ML KIT 250 ML IV SCH (14:00)
[2022-10-10] MEDS ORDERED: TPN PER PHARMACY IV NR ×10 (20:00)
[2022-10-11] VITALS (102 sets, daily range): BP systolic 56–148; BP diastolic 39–99
[2022-10-11] MEDS: ACCU-CHEK COMFORT CURVE STRIP VI SCH ×5 (00:36→23:28)
[2022-10-11] MEDS: InsuLIN REG 1unit/0.01ml Soln (100units/ml) SC SCH ×5 (00:37→23:30)
[2022-10-11] MEDS: HYDROmorphone HCL 2 MG/ML VL/or syr IV PRN ×5 (01:15→23:55)
[2022-10-11 04:24] LABS: Basophils # (auto) 0 10 ^3/uL (0-0.2); Basophils % (auto) 0.1 % (0.0-2.0); Eosinophils # (auto) 0.1 10 ^3/uL (0-0.8); Hemoglobin 7.4 g/dL (12.2-16.2)
[2022-10-11 04:27] LABS: Eosinophils % (auto) 1.2 % (0.0-7.0); Hematocrit 21.8 % (36.0-46.0); Lymphocytes # (auto) 1.1 10 ^3/uL (0.4-5.4); Lymphocytes % (auto) 11.1 % (10.0-50.0); Mean Corpuscular Hemoglobin 26.6 pg (28.0-32.0); Mean Corpuscular Hgb Conc. 33.9 g/dL (32.0-36.0); Mean Corpuscular Volume 78.5 fL (80.0-100.0); Monocytes # (auto) 1.3 10 ^3/uL (0-1.3); Monocytes % (auto) 12.5 % (0.0-12.0); Neutrophils # (auto) 7.5 10 ^3/uL (1.6-8.6); Neutrophils % (auto) 75.1 % (37.0-80.0); Red Blood Cells 2.78 10^6/uL (4.0-5.20); Red Cell Distribution Width 15.4 % (11.8-14.3)
[2022-10-11 04:34] LABS: Albumin 1.6 g/dL (3.4-5.0); BUN/Creatinine Ratio 33.3 (10.0-20.0); Calcium 7.6 mg/dL (8.5-10.1); Magnesium 1.6 mg/dL (1.6-2.6); Potassium 3.2 mmol/L (3.5-5.1)
[2022-10-11 04:36] LABS: Bilirubin, Total 0.6 mg/dL (0.2-1.0); Phosphorus 2.3 mg/dL (2.5-4.90); Total Protein 5.9 g/dL (6.4-8.2)
[2022-10-11] MEDS: MIDODRINE HCL 10 MG TAB PO SCH ×3 (06:00→18:00)
[2022-10-11] MEDS: metroNIDAZOLE 500MG/100ML 100 ML IV SCH ×3 (06:23→21:58)
[2022-10-11] MEDS: D5W/SOD CHL 0.45% 1,000 ML IV SCH ×2 (06:45→13:10)
[2022-10-11] MEDS ORDERED: POTASSIUM PHOSPHATE 22 MEQ in SODIUM CHL 0.9% 100 ML IV ONE (09:30)
[2022-10-11] MEDS: ENOXAPARIN SOD 40 MG/0.4 ML SYRINGE SC SCH (09:43)
[2022-10-11] MEDS: PANTOPRAZOLE 40 MG/10 ML VIAL INJ IV SCH ×2 (11:03→21:58)
[2022-10-11] MEDS: SODIUM CHLOR 0.9% PF (SALINE LOCK) 10ML VIAL/SYR IV SCH ×2 (11:04→22:02)
[2022-10-11] MEDS: ONDANSETRON HCL 4 MG/2 ML VIAL IV PRN ×2 (11:12→21:28)
[2022-10-11] MEDS: MIDAZOLAM DRIP 50 mg/50mL 50 ML IV SCH (12:15)
[2022-10-11] MEDS: fentaNYL Drip 2500mCg/250mlNS 250 ML IV SCH (12:43)
[2022-10-11] MEDS: NOREPINEPHRINE 8 MG/250ML KIT 250 ML IV SCH (14:00)
[2022-10-11] MEDS: cefTRIAXone 1GM/50ML D5W 50 ML IV SCH (14:56)
[2022-10-11] MEDS ORDERED: TPN PER PHARMACY IV NR ×11 (20:00)
[2022-10-12] VITALS (93 sets, daily range): BP systolic 82–139; BP diastolic 36–73
[2022-10-12] MEDS: NOREPINEPHRINE 8 MG/250ML KIT 250 ML IV SCH ×2 (00:35→11:33)
[2022-10-12] MEDS: fentaNYL Drip 2500mCg/250mlNS 250 ML IV SCH (00:36)
[2022-10-12] MEDS: ONDANSETRON HCL 4 MG/2 ML VIAL IV PRN (02:24)
[2022-10-12 04:21] LABS: Basophils # (auto) 0 10 ^3/uL (0-0.2); Basophils % (auto) 0.5 % (0.0-2.0); Eosinophils # (auto) 0.1 10 ^3/uL (0-0.8); Eosinophils % (auto) 1.1 % (0.0-7.0); Hematocrit 21.8 % (36.0-46.0); Hemoglobin 7.3 g/dL (12.2-16.2); Lymphocytes % (auto) 12.8 % (10.0-50.0); Mean Corpuscular Hemoglobin 26.1 pg (28.0-32.0); Mean Corpuscular Hgb Conc. 33.7 g/dL (32.0-36.0); Mean Corpuscular Volume 77.4 fL (80.0-100.0); Monocytes # (auto) 0.9 10 ^3/uL (0-1.3); Monocytes % (auto) 11.1 % (0.0-12.0); Neutrophils # (auto) 5.8 10 ^3/uL (1.6-8.6); Neutrophils % (auto) 74.5 % (37.0-80.0); Red Blood Cells 2.82 10^6/uL (4.0-5.20); White Blood Cell 7.8 10^3/uL (4.4-10.8)
[2022-10-12 04:58] LABS: Potassium 3.6 mmol/L (3.5-5.1)
[2022-10-12 05:06] LABS: Albumin 1.9 g/dL (3.4-5.0); BUN/Creatinine Ratio 43.3 (10.0-20.0); Bilirubin, Total 0.2 mg/dL (0.2-1.0); Calcium 8.3 mg/dL (8.5-10.1); Phosphorus 2.8 mg/dL (2.5-4.90); Total Protein 6.4 g/dL (6.4-8.2)
[2022-10-12] MEDS: MIDODRINE HCL 10 MG TAB PO SCH ×3 (06:00→18:00)
[2022-10-12] MEDS: metroNIDAZOLE 500MG/100ML 100 ML IV SCH ×3 (06:04→22:10)
[2022-10-12] MEDS: HYDROmorphone HCL 2 MG/ML VL/or syr IV PRN (06:05)
[2022-10-12] MEDS: ACCU-CHEK COMFORT CURVE STRIP VI SCH ×4 (06:13→23:59)
[2022-10-12] MEDS: InsuLIN REG 1unit/0.01ml Soln (100units/ml) SC SCH ×3 (06:17→18:00)
[2022-10-12] MEDS: D5W/SOD CHL 0.45% 1,000 ML IV SCH ×2 (09:25→22:11)
[2022-10-12] MEDS: ENOXAPARIN SOD 40 MG/0.4 ML SYRINGE SC SCH (10:00)
[2022-10-12] MEDS ORDERED: MORPHINE SULFATE 4 MG/ML SYR/VIAL IV PRN (11:00)
[2022-10-12] MEDS: SODIUM CHLOR 0.9% PF (SALINE LOCK) 10ML VIAL/SYR IV SCH ×2 (11:31→22:10)
[2022-10-12] MEDS: cefTRIAXone 1GM/50ML D5W 50 ML IV SCH (11:31)
[2022-10-12] MEDS: PANTOPRAZOLE 40 MG/10 ML VIAL INJ IV SCH ×2 (11:31→22:10)
[2022-10-12] MEDS: MIDAZOLAM DRIP 50 mg/50mL 50 ML IV SCH (12:15)
[2022-10-12] MEDS: MORPHINE SULFATE INJ 2 MG/ml SYRG IV PRN ×3 (13:02→23:59)
[2022-10-12] MEDS: METOCLOPRAMIDE HCL 5MG/ml INJ 2ml VIAL IV SCH ×2 (14:26→22:10)
[2022-10-12] MEDS ORDERED: TPN PER PHARMACY IV NR ×10 (20:00)
[2022-10-13] VITALS (88 sets, daily range): BP systolic 85–134; BP diastolic 30–56
[2022-10-13 04:10] LABS: Basophils # (auto) 0 10 ^3/uL (0-0.2); Basophils % (auto) 0.8 % (0.0-2.0); Eosinophils # (auto) 0.1 10 ^3/uL (0-0.8); Hematocrit 21.5 % (36.0-46.0); Hemoglobin 7.3 g/dL (12.2-16.2); Lymphocytes % (auto) 16.3 % (10.0-50.0); Mean Corpuscular Hemoglobin 26.6 pg (28.0-32.0); Mean Corpuscular Hgb Conc. 33.9 g/dL (32.0-36.0); Mean Corpuscular Volume 78.4 fL (80.0-100.0); Monocytes # (auto) 0.7 10 ^3/uL (0-1.3); Monocytes % (auto) 11.6 % (0.0-12.0); Neutrophils # (auto) 4.5 10 ^3/uL (1.6-8.6); Neutrophils % (auto) 70.3 % (37.0-80.0); Nucleated Red Blood Cells % 0.1 %; Red Blood Cells 2.74 10^6/uL (4.0-5.20); Red Cell Distribution Width 17.1 % (11.8-14.3); White Blood Cell 6.4 10^3/uL (4.4-10.8)
[2022-10-13] MEDS: MORPHINE SULFATE INJ 2 MG/ml SYRG IV PRN ×4 (04:16→21:20)
[2022-10-13 04:17] LABS: Albumin 1.8 g/dL (3.4-5.0); Calcium 8.1 mg/dL (8.5-10.1); Potassium 3.6 mmol/L (3.5-5.1)
[2022-10-13 04:23] LABS: BUN/Creatinine Ratio 32.4 (10.0-20.0); Bilirubin, Total 0.2 mg/dL (0.2-1.0); Phosphorus 2.8 mg/dL (2.5-4.90)
[2022-10-13] MEDS: metroNIDAZOLE 500MG/100ML 100 ML IV SCH ×3 (05:39→21:19)
[2022-10-13] MEDS: METOCLOPRAMIDE HCL 5MG/ml INJ 2ml VIAL IV SCH ×3 (05:39→21:19)
[2022-10-13] MEDS: MIDODRINE HCL 10 MG TAB PO SCH ×3 (05:39→18:37)
[2022-10-13] MEDS: ACCU-CHEK COMFORT CURVE STRIP VI SCH ×4 (05:48→23:24)
[2022-10-13] MEDS: InsuLIN REG 1unit/0.01ml Soln (100units/ml) SC SCH ×5 (05:49→23:24)
[2022-10-13] MEDS: NOREPINEPHRINE 8 MG/250ML KIT 250 ML IV SCH (08:14)
[2022-10-13] MEDS: cefTRIAXone 1GM/50ML D5W 50 ML IV SCH (09:39)
[2022-10-13] MEDS: PANTOPRAZOLE 40 MG/10 ML VIAL INJ IV SCH ×2 (09:39→21:19)
[2022-10-13] MEDS: ENOXAPARIN SOD 40 MG/0.4 ML SYRINGE SC SCH (09:41)
[2022-10-13] MEDS: SODIUM CHLOR 0.9% PF (SALINE LOCK) 10ML VIAL/SYR IV SCH ×2 (09:41→22:00)
[2022-10-13] MEDS: D5W/SOD CHL 0.45% 1,000 ML IV SCH (12:05)
[2022-10-13] MEDS: MIDAZOLAM DRIP 50 mg/50mL 50 ML IV SCH (12:15)
[2022-10-13] MEDS: fentaNYL Drip 2500mCg/250mlNS 250 ML IV SCH (12:15)
[2022-10-13] MEDS ORDERED: TPN PER PHARMACY IV NR ×11 (20:00)
[2022-10-14] VITALS (62 sets, daily range): BP systolic 87–123; BP diastolic 37–57
[2022-10-14] MEDS: MORPHINE SULFATE INJ 2 MG/ml SYRG IV PRN (04:20)
[2022-10-14 04:29] LABS: Basophils # (auto) 0 10 ^3/uL (0-0.2); Eosinophils # (auto) 0.1 10 ^3/uL (0-0.8); Eosinophils % (auto) 1.2 % (0.0-7.0); Lymphocytes # (auto) 0.9 10 ^3/uL (0.4-5.4); Monocytes # (auto) 0.6 10 ^3/uL (0-1.3); Neutrophils # (auto) 3.3 10 ^3/uL (1.6-8.6); White Blood Cell 4.9 10^3/uL (4.4-10.8)
[2022-10-14 04:33] LABS: Basophils % (auto) 0.4 % (0.0-2.0); Hematocrit 21.6 % (36.0-46.0); Hemoglobin 7.2 g/dL (12.2-16.2); Lymphocytes % (auto) 18.8 % (10.0-50.0); Mean Corpuscular Hemoglobin 26.6 pg (28.0-32.0); Mean Corpuscular Hgb Conc. 33.5 g/dL (32.0-36.0); Mean Corpuscular Volume 79.3 fL (80.0-100.0); Monocytes % (auto) 12.7 % (0.0-12.0); Neutrophils % (auto) 66.9 % (37.0-80.0); Nucleated Red Blood Cells % 0.3 %; Red Blood Cells 2.73 10^6/uL (4.0-5.20); Red Cell Distribution Width 17.5 % (11.8-14.3)
[2022-10-14 04:45] LABS: Albumin 1.7 g/dL (3.4-5.0); Potassium 3.7 mmol/L (3.5-5.1)
[2022-10-14 04:49] LABS: BUN/Creatinine Ratio 31.4 (10.0-20.0); Bilirubin, Total 0.2 mg/dL (0.2-1.0); Phosphorus 3.2 mg/dL (2.5-4.90); Total Protein 5.8 g/dL (6.4-8.2)
[2022-10-14] MEDS: ACCU-CHEK COMFORT CURVE STRIP VI SCH ×3 (05:47→17:55)
[2022-10-14] MEDS: InsuLIN REG 1unit/0.01ml Soln (100units/ml) SC SCH ×3 (05:47→17:56)
[2022-10-14] MEDS: D5W/SOD CHL 0.45% 1,000 ML IV SCH ×3 (06:12→22:16)
[2022-10-14] MEDS: METOCLOPRAMIDE HCL 5MG/ml INJ 2ml VIAL IV SCH ×2 (06:12→14:00)
[2022-10-14] MEDS: MIDODRINE HCL 10 MG TAB PO SCH ×3 (06:12→17:55)
[2022-10-14] MEDS: metroNIDAZOLE 500MG/100ML 100 ML IV SCH ×3 (06:12→22:08)
[2022-10-14] MEDS: PANTOPRAZOLE 40 MG/10 ML VIAL INJ IV SCH ×2 (10:14→22:08)
[2022-10-14] MEDS: SODIUM CHLOR 0.9% PF (SALINE LOCK) 10ML VIAL/SYR IV SCH ×2 (10:14→22:16)
[2022-10-14] MEDS: cefTRIAXone 1GM/50ML D5W 50 ML IV SCH (10:14)
[2022-10-14] MEDS: ENOXAPARIN SOD 40 MG/0.4 ML SYRINGE SC SCH (11:01)
[2022-10-14] MEDS: HYDROcodone-ACET 5/325MG TAB PO PRN ×2 (11:05→18:02)
[2022-10-14] MEDS: fentaNYL Drip 2500mCg/250mlNS 250 ML IV SCH (12:15)
[2022-10-14] MEDS: MIDAZOLAM DRIP 50 mg/50mL 50 ML IV SCH (12:15)
[2022-10-14] MEDS: NOREPINEPHRINE 8 MG/250ML KIT 250 ML IV SCH (14:00)
[2022-10-14] MEDS ORDERED: TPN PER PHARMACY IV NR ×11 (20:00)
[2022-10-14] MEDS: ONDANSETRON HCL 4 MG/2 ML VIAL IV PRN (22:22)
[2022-10-15] VITALS (17 sets, daily range): BP systolic 89–112; BP diastolic 42–57
[2022-10-15] MEDS: MORPHINE SULFATE INJ 2 MG/ml SYRG IV PRN (01:22)
[2022-10-15 04:41] LABS: Basophils # (auto) 0 10 ^3/uL (0-0.2); Eosinophils # (auto) 0.1 10 ^3/uL (0-0.8); Hemoglobin 7.1 g/dL (12.2-16.2); Lymphocytes # (auto) 0.9 10 ^3/uL (0.4-5.4); Monocytes # (auto) 0.5 10 ^3/uL (0-1.3); Nucleated Red Blood Cells % 0.2 %
[2022-10-15 04:43] LABS: Basophils % (auto) 0.7 % (0.0-2.0); Eosinophils % (auto) 1.5 % (0.0-7.0); Lymphocytes % (auto) 20.3 % (10.0-50.0); Mean Corpuscular Hemoglobin 27.5 pg (28.0-32.0); Mean Corpuscular Volume 80.8 fL (80.0-100.0); Monocytes % (auto) 12.1 % (0.0-12.0); Neutrophils % (auto) 65.4 % (37.0-80.0); Red Cell Distribution Width 18.4 % (11.8-14.3); White Blood Cell 4.5 10^3/uL (4.4-10.8)
[2022-10-15 04:46] LABS: Albumin 1.7 g/dL (3.4-5.0); Calcium 7.9 mg/dL (8.5-10.1); Magnesium 2.2 mg/dL (1.6-2.6); Potassium 4.3 mmol/L (3.5-5.1)
[2022-10-15 04:50] LABS: BUN/Creatinine Ratio 31.7 (10.0-20.0); Bilirubin, Total 0.2 mg/dL (0.2-1.0); Phosphorus 3.6 mg/dL (2.5-4.90); Total Protein 5.6 g/dL (6.4-8.2)
[2022-10-15] MEDS: metroNIDAZOLE 500MG/100ML 100 ML IV SCH ×3 (05:37→21:38)
[2022-10-15] MEDS: InsuLIN REG 1unit/0.01ml Soln (100units/ml) SC SCH ×3 (05:37→12:13)
[2022-10-15] MEDS: MIDODRINE HCL 10 MG TAB PO SCH ×3 (05:37→18:07)
[2022-10-15] MEDS: ACCU-CHEK COMFORT CURVE STRIP VI SCH ×3 (05:38→12:08)
[2022-10-15] MEDS: cefTRIAXone 1GM/50ML D5W 50 ML IV SCH (09:27)
[2022-10-15] MEDS: PANTOPRAZOLE 40 MG/10 ML VIAL INJ IV SCH ×2 (09:31→21:38)
[2022-10-15] MEDS: SODIUM CHLOR 0.9% PF (SALINE LOCK) 10ML VIAL/SYR IV SCH ×2 (09:31→21:45)
[2022-10-15] MEDS: ENOXAPARIN SOD 40 MG/0.4 ML SYRINGE SC SCH (09:32)
[2022-10-15] MEDS: ACETAMINOPHEN 325 MG TAB PO PRN (09:33)
[2022-10-15] MEDS: HYDROcodone-ACET 5/325MG TAB PO PRN ×2 (16:12→21:39)
[2022-10-16 05:00] VITALS: BP 101/47
[2022-10-16 05:21] LABS: Basophils # (auto) 0 10 ^3/uL (0-0.2); Basophils % (auto) 0.3 % (0.0-2.0); Eosinophils # (auto) 0.1 10 ^3/uL (0-0.8); Eosinophils % (auto) 1.1 % (0.0-7.0); Hematocrit 22.2 % (36.0-46.0); Hemoglobin 7.4 g/dL (12.2-16.2); Mean Corpuscular Hemoglobin 26.6 pg (28.0-32.0); Mean Corpuscular Hgb Conc. 33.1 g/dL (32.0-36.0); Mean Corpuscular Volume 80.3 fL (80.0-100.0); Monocytes # (auto) 0.5 10 ^3/uL (0-1.3); Monocytes % (auto) 10.9 % (0.0-12.0); Neutrophils # (auto) 3.3 10 ^3/uL (1.6-8.6); Neutrophils % (auto) 67.7 % (37.0-80.0); Nucleated Red Blood Cells % 0.1 %; Red Blood Cells 2.76 10^6/uL (4.0-5.20); Red Cell Distribution Width 19.2 % (11.8-14.3); White Blood Cell 4.9 10^3/uL (4.4-10.8)
[2022-10-16 05:33] LABS: BUN/Creatinine Ratio 26.3 (10.0-20.0); Calcium 8.3 mg/dL (8.5-10.1); Potassium 3.8 mmol/L (3.5-5.1)
[2022-10-16] MEDS: MIDODRINE HCL 10 MG TAB PO SCH ×3 (05:35→17:41)
[2022-10-16] MEDS: metroNIDAZOLE 500MG/100ML 100 ML IV SCH ×3 (05:35→21:59)
[2022-10-16] MEDS: HYDROcodone-ACET 5/325MG TAB PO PRN (06:07)
[2022-10-16 08:00] VITALS: BP 99/47
[2022-10-16] MEDS: ENOXAPARIN SOD 40 MG/0.4 ML SYRINGE SC SCH (09:45)
[2022-10-16] MEDS: cefTRIAXone 1GM/50ML D5W 50 ML IV SCH (09:45)
[2022-10-16] MEDS: PANTOPRAZOLE 40 MG/10 ML VIAL INJ IV SCH ×2 (09:45→21:59)
[2022-10-16] MEDS: SODIUM CHLOR 0.9% PF (SALINE LOCK) 10ML VIAL/SYR IV SCH ×2 (09:48→21:59)
[2022-10-16] MEDS: D5W/SOD CHL 0.45% 1,000 ML IV SCH ×3 (09:50→20:05)
[2022-10-16 12:00] VITALS: BP 110/52
[2022-10-16 16:00] VITALS: BP 104/65
[2022-10-16] MEDS: ACETAMINOPHEN 325 MG TAB PO PRN (17:42)
[2022-10-16 20:00] VITALS: BP 108/64
[2022-10-16 22:00] VITALS: BP 109/39
[2022-10-17] MEDS: HYDROcodone-ACET 5/325MG TAB PO PRN (02:02)
[2022-10-17 05:00] VITALS: BP 92/48
[2022-10-17] MEDS: MIDODRINE HCL 10 MG TAB PO SCH ×3 (05:28→18:09)
[2022-10-17] MEDS: metroNIDAZOLE 500MG/100ML 100 ML IV SCH ×3 (05:28→22:19)
[2022-10-17 06:36] LABS: Basophils # (auto) 0 10 ^3/uL (0-0.2); Basophils % (auto) 0.4 % (0.0-2.0); Eosinophils # (auto) 0.1 10 ^3/uL (0-0.8); Lymphocytes # (auto) 1.5 10 ^3/uL (0.4-5.4)
[2022-10-17 06:39] LABS: Eosinophils % (auto) 1.1 % (0.0-7.0); Hematocrit 23.3 % (36.0-46.0); Hemoglobin 7.8 g/dL (12.2-16.2); Lymphocytes % (auto) 29.1 % (10.0-50.0); Mean Corpuscular Hemoglobin 26.8 pg (28.0-32.0); Mean Corpuscular Hgb Conc. 33.5 g/dL (32.0-36.0); Monocytes # (auto) 0.6 10 ^3/uL (0-1.3); Monocytes % (auto) 12.4 % (0.0-12.0); Neutrophils # (auto) 2.9 10 ^3/uL (1.6-8.6); Nucleated Red Blood Cells % 0.3 %; Red Blood Cells 2.92 10^6/uL (4.0-5.20)
[2022-10-17] MEDS: ONDANSETRON HCL 4 MG/2 ML VIAL IV PRN (06:47)
[2022-10-17 06:56] LABS: Potassium 4.4 mmol/L (3.5-5.1)
[2022-10-17 07:02] LABS: BUN/Creatinine Ratio 14.3 (10.0-20.0); Calcium 8.4 mg/dL (8.5-10.1)
[2022-10-17 07:12] LABS: Red Cell Distribution Width 20.6 % (11.8-14.3)
[2022-10-17 09:00] VITALS: BP 91/41
[2022-10-17] MEDS: PANTOPRAZOLE 40 MG/10 ML VIAL INJ IV SCH ×2 (10:32→22:19)
[2022-10-17] MEDS: ENOXAPARIN SOD 40 MG/0.4 ML SYRINGE SC SCH (10:32)
[2022-10-17] MEDS: SODIUM CHLOR 0.9% PF (SALINE LOCK) 10ML VIAL/SYR IV SCH ×2 (10:33→22:00)
[2022-10-17] MEDS: cefTRIAXone 1GM/50ML D5W 50 ML IV SCH (10:33)
[2022-10-17 13:00] VITALS: BP 108/53
[2022-10-17 17:00] VITALS: BP 110/54
[2022-10-17] MEDS: MORPHINE SULFATE INJ 2 MG/ml SYRG IV PRN (20:26)
[2022-10-17 22:00] VITALS: BP 112/59
[2022-10-18 05:00] VITALS: BP 108/52
[2022-10-18] MEDS: metroNIDAZOLE 500MG/100ML 100 ML IV SCH ×3 (06:00→21:58)
[2022-10-18] MEDS: MIDODRINE HCL 10 MG TAB PO SCH ×3 (06:00→18:14)
[2022-10-18 06:38] LABS: Basophils # (auto) 0 10 ^3/uL (0-0.2); Eosinophils # (auto) 0 10 ^3/uL (0-0.8); Lymphocytes # (auto) 1.1 10 ^3/uL (0.4-5.4); Monocytes # (auto) 0.5 10 ^3/uL (0-1.3); Neutrophils # (auto) 2.5 10 ^3/uL (1.6-8.6); Neutrophils % (auto) 60.5 % (37.0-80.0); White Blood Cell 4.2 10^3/uL (4.4-10.8)
[2022-10-18 06:42] LABS: Basophils % (auto) 0.5 % (0.0-2.0); Eosinophils % (auto) 0.8 % (0.0-7.0); Hematocrit 23.9 % (36.0-46.0); Lymphocytes % (auto) 26.7 % (10.0-50.0); Mean Corpuscular Hemoglobin 26.9 pg (28.0-32.0); Mean Corpuscular Hgb Conc. 33.5 g/dL (32.0-36.0); Mean Corpuscular Volume 80.3 fL (80.0-100.0); Monocytes % (auto) 11.5 % (0.0-12.0); Nucleated Red Blood Cells % 0.2 %; Red Blood Cells 2.97 10^6/uL (4.0-5.20)
[2022-10-18 06:44] LABS: Red Cell Distribution Width 21.3 % (11.8-14.3)
[2022-10-18 06:48] LABS: Calcium 8.8 mg/dL (8.5-10.1)
[2022-10-18 06:53] LABS: BUN/Creatinine Ratio 13.3 (10.0-20.0)
[2022-10-18 09:00] VITALS: BP 91/40
[2022-10-18] MEDS ORDERED: HYDR-4902 PO (09:00)
[2022-10-18] MEDS: cefTRIAXone 1GM/50ML D5W 50 ML IV SCH (10:03)
[2022-10-18] MEDS: PANTOPRAZOLE 40 MG/10 ML VIAL INJ IV SCH ×2 (10:03→21:47)
[2022-10-18] MEDS: SODIUM CHLOR 0.9% PF (SALINE LOCK) 10ML VIAL/SYR IV SCH ×2 (10:04→21:58)
[2022-10-18] MEDS: ENOXAPARIN SOD 40 MG/0.4 ML SYRINGE SC SCH (10:04)
[2022-10-18 12:37] VITALS: BP 111/52
[2022-10-18 16:44] VITALS: BP 112/52
[2022-10-18] MEDS: ACETAMINOPHEN 325 MG TAB PO PRN (21:48)
[2022-10-18 22:00] VITALS: BP 97/52
[2022-10-19 05:00] VITALS: BP 99/40
[2022-10-19] MEDS: MORPHINE SULFATE INJ 2 MG/ml SYRG IV PRN ×2 (05:17→15:26)
[2022-10-19] MEDS: MIDODRINE HCL 10 MG TAB PO SCH ×3 (06:00→19:39)
[2022-10-19] MEDS: metroNIDAZOLE 500MG/100ML 100 ML IV SCH ×2 (06:17→15:26)
[2022-10-19] MEDS ORDERED: METR500T PO (09:56)
[2022-10-19] MEDS: cefTRIAXone 1GM/50ML D5W 50 ML IV SCH (10:03)
[2022-10-19] MEDS: PANTOPRAZOLE 40 MG/10 ML VIAL INJ IV SCH (10:04)
[2022-10-19] MEDS: ENOXAPARIN SOD 40 MG/0.4 ML SYRINGE SC SCH (10:05)
[2022-10-19] MEDS: SODIUM CHLOR 0.9% PF (SALINE LOCK) 10ML VIAL/SYR IV SCH (10:05)
[2022-10-19 13:00] VITALS: BP 108/74
[2022-10-19 17:00] VITALS: BP 113/46
[2022-10-19 17:54] VITALS: BP 108/74
== END 2022-10-19 19:39 | disposition home health service (06) | DRG 710 ==
LOC: ER 08:00 → TELE 18:03 → ICU WEST 21:18 → TELE-CENTR 10-15 15:34 → CENTRAL 10-17 20:55
PROVIDERS: ADMIT Registered Nurse; ATTEND Internal Medicine Pulmonary Disease
PROC: 0W9F3ZZ Drainage of Abdominal Wall, Percutaneous Approach (ICD-10-PCS; 2022-09-30)
PROC: 02H633Z Insertion of Infusion Device into Right Atrium, Percutaneous Approach (ICD-10-PCS; 2022-10-01)
PROC: B548ZZA Ultrasonography of Superior Vena Cava, Guidance (ICD-10-PCS; 2022-10-01)
PROC: 0D1M0Z4 Bypass Descending Colon to Cutaneous, Open Approach (ICD-10-PCS; 2022-10-09)
PROC: 5A1945Z Respiratory Ventilation, 24-96 Consecutive Hours (ICD-10-PCS; 2022-10-09)
PROC: 30233N1 Transfusion of Nonautologous Red Blood Cells into Peripheral Vein, Percutaneous Approach (ICD-10-PCS; principal; 2022-10-10)
DX: A41.9 Sepsis, unspecified organism (principal); J96.01 Acute respiratory failure with hypoxia; R65.21 Severe sepsis with septic shock; K57.20 Diverticulitis of large intestine with perforation and abscess without bleeding; L02.211 Cutaneous abscess of abdominal wall; N39.0 Urinary tract infection, site not specified; D64.9 Anemia, unspecified; E66.01 Morbid (severe) obesity due to excess calories; J98.11 Atelectasis; Z90.710 Acquired absence of both cervix and uterus; Z68.24 Body mass index [BMI] 24.0-24.9, adult
CPT/HCPCS: 36415; 36569; 36600; 71045; 72193; 74018; 74176; 74177; 74430; 76705; 76942; 80048; 80053; 80061; 80202; 81001; 82270; 82533; 82607; 82728; 82746; 82805; 82962; 83036; 83540; 83550; 83605; 83615; 83690; 83735; 83880; 83986; 84100; 84443; 84478; 84484; 85014; 85018; 85025; 85045; 85049; 85384; 85610; 85730; 86850; 86900; 86901; 86920; 87040; 87070; 87077; 87081; 87086; 87088; 87186; 87205; 89051; 93005; 93306; 94002; 94003; 94640; 96361; 96365; 96366; 96367; 96368; 96375; 97110; 97116; 97163; 97530; 99291; C9113; G0378; J0696; J1100; J1815; J2001; J2250; J2405; J2543; J3480; J3490; J7060; J7131; P9047

== ENCOUNTER 2022-11-03 11:08 | Emergency (ER) | payer MEDICAID ==
[~2022-11-03] VITALS: Ht 154.9 cm; Wt 70.4 kg
[~2022-11-03 11:08] MED LIST: HYDR-4902 PO; METR500T PO
[2022-11-03 11:37] LABS: Basophils # (auto) 0 10 ^3/uL (0-0.2); Eosinophils # (auto) 0.1 10 ^3/uL (0-0.8); Neutrophils # (auto) 2.1 10 ^3/uL (1.6-8.6); Nucleated Red Blood Cells % 0.1 %
[2022-11-03 11:39] LABS: Basophils % (auto) 0.2 % (0.0-2.0); Eosinophils % (auto) 1.7 % (0.0-7.0); Hematocrit 36.9 % (36.0-46.0); Lymphocytes # (auto) 2.7 10 ^3/uL (0.4-5.4); Lymphocytes % (auto) 50.6 % (10.0-50.0); Mean Corpuscular Hemoglobin 26.7 pg (28.0-32.0); Mean Corpuscular Hgb Conc. 32.5 g/dL (32.0-36.0); Monocytes # (auto) 0.4 10 ^3/uL (0-1.3); Monocytes % (auto) 8.1 % (0.0-12.0); Neutrophils % (auto) 39.4 % (37.0-80.0); White Blood Cell 5.3 10^3/uL (4.4-10.8)
[2022-11-03 11:40] LABS: Red Cell Distribution Width 20.6 % (11.8-14.3)
[2022-11-03 12:25] LABS: Potassium 4.4 mmol/L (3.5-5.1)
[2022-11-03 12:32] LABS: Albumin 3.6 g/dL (3.4-5.0); BUN/Creatinine Ratio 16.9 (10.0-20.0); Bilirubin, Total 0.4 mg/dL (0.2-1.0); Calcium 9.3 mg/dL (8.5-10.1); Magnesium 2.2 mg/dL (1.6-2.6); Total Protein 8.5 g/dL (6.4-8.2)
[2022-11-03 13:50] LABS: Lactic Acid w/Reflex 2.5 mmol/L (0.4-2.0)
[2022-11-03] MEDS ORDERED: SODIUM CHLORIDE 0.9% 1,000 ML IV ONE (15:00)
[2022-11-03 16:03] LABS: Urine Bacteria NONE SEEN /hpf (None Seen); Urine Blood Negative /uL (Negative); Urine Specific Gravity 1.011 (1.001-1.035); Urine WBC 4 /hpf (0 - 5)
[2022-11-03 18:33] VITALS: BP 100/56
== END 2022-11-03 18:34 | disposition home or self-care (01) ==
LOC: ER 11:08
DX: M25.512 Pain in left shoulder (principal); M79.10 Myalgia, unspecified site; M54.6 Pain in thoracic spine; R51.9 Headache, unspecified; R07.89 Other chest pain; Z90.710 Acquired absence of both cervix and uterus; Z79.899 Other long term (current) drug therapy
CPT/HCPCS: 36415; 70450; 71045; 80053; 81001; 83605; 83735; 84484; 85025; 93005; 96360; 99285; J7030

== ENCOUNTER 2022-11-04 22:46 | Emergency (ER) | payer MEDICAID ==
[~2022-11-04] VITALS: Ht 154.9 cm; Wt 155.0 kg
[2022-11-04] MEDS ORDERED: IODIXANOL 320MG/ML 100ML BTL IV ONE (23:28)
[2022-11-04] MEDS ORDERED: LACTATED RINGER'S 1,000 ML IV ONE (23:30)
[2022-11-04 23:36] LABS: Basophils # (auto) 0 10 ^3/uL (0-0.2); Eosinophils # (auto) 0.1 10 ^3/uL (0-0.8); Monocytes # (auto) 0.5 10 ^3/uL (0-1.3); Neutrophils # (auto) 2.3 10 ^3/uL (1.6-8.6); White Blood Cell 4.9 10^3/uL (4.4-10.8)
[2022-11-04 23:48] LABS: Basophils % (auto) 0.3 % (0.0-2.0); Eosinophils % (auto) 2.2 % (0.0-7.0); Hematocrit 33.7 % (36.0-46.0); Hemoglobin 11.1 g/dL (12.2-16.2); Lymphocytes % (auto) 40.3 % (10.0-50.0); Mean Corpuscular Hemoglobin 27.1 pg (28.0-32.0); Mean Corpuscular Hgb Conc. 32.9 g/dL (32.0-36.0); Mean Corpuscular Volume 82.4 fL (80.0-100.0); Monocytes % (auto) 10.8 % (0.0-12.0); Neutrophils % (auto) 46.4 % (37.0-80.0); Nucleated Red Blood Cells % 0.3 %; Red Blood Cells 4.09 10^6/uL (4.0-5.20); Red Cell Distribution Width 19.9 % (11.8-14.3)
[2022-11-04 23:59] LABS: Albumin 3.1 g/dL (3.4-5.0); BUN/Creatinine Ratio 18.1 (10.0-20.0); Calcium 9.1 mg/dL (8.5-10.1); Potassium 3.9 mmol/L (3.5-5.1)
[2022-11-05 00:02] LABS: Bilirubin, Total 0.2 mg/dL (0.2-1.0); Total Protein 8.1 g/dL (6.4-8.2)
[2022-11-05 00:59] LABS: Urine Bacteria NONE SEEN /hpf (None Seen); Urine Blood Negative /uL (Negative); Urine Mucus FEW (None Seen); Urine Specific Gravity 1.027 (1.001-1.035); Urine WBC 15 /hpf (0 - 5)
[2022-11-05] MEDS ORDERED: MUPI2CRE17 EX (03:48)
[2022-11-05 05:25] VITALS: BP 122/67
== END 2022-11-05 05:43 | disposition home or self-care (01) ==
LOC: ER 22:46
DX: K94.00 Colostomy complication, unspecified (principal); D64.9 Anemia, unspecified; E87.8 Other disorders of electrolyte and fluid balance, not elsewhere classified; R73.9 Hyperglycemia, unspecified; L25.9 Unspecified contact dermatitis, unspecified cause; Z90.710 Acquired absence of both cervix and uterus
CPT/HCPCS: 36415; 71045; 74177; 80053; 81001; 82150; 83605; 83690; 83735; 85025; 87040; 96360; 96361; 99285; Q9967